=== PATIENT | male | born 1960 | race Caucasian/White ===

== ENCOUNTER 2024-04-28 21:48 | Emergency (ER) | payer SELFPAY ==
[2024-04-28 21:54] VITALS: BP 90/66; PULSE 71; RESP 20; TEMP 36.6; O2SAT 99; BMI 22.4
--- NOTE | 2024-04-28 23:33 | ED_ITS ---
HPI - Eye Problem General Chief complaint: Eye Problems Stated complaint: FB in R eye Time Seen by Provider: 04/28/24 22:17 Source: patient and RN notes reviewed Mode of arrival: ambulatory Limitations: no limitations History of Present Illness ED Provider: Sheryl Mohamud PA-C HPI Narrative: This is a 64-year-old male, with no known medical problems, who presents to the emergency department with complaints of right eye foreign body. Patient states that he was grinding metal in a piece of metal got behind his safety glasses and went into his right eye. He states that he tried flushing his eye with water however feels as though the eye still has a foreign body in it. He admits to pain, foreign body like sensation, as well as some blurred vision. He does not wear contact lenses. No other complaints or concerns at this time. MD chief complaint: eye pain, eye redness, eye injury and foreign body Onset (ago): hour(s) Onset description: sudden Duration: constant Location: right eye Eye Symptoms: redness, foreign body sensation and blurry vision Place: home Mechanism: direct trauma and occurred while hammering/grinding Severity: moderate If Pain, Quality: aching Associated symptoms: none Treatments Prior to Arrival: irrigated eye Related Data Previous Rx's ?Medication ?Instructions ?Recorded erythromycin 5 mg/gram (0.5 %) eye 0.5 inch ophthalmic (eye) QID #3.5 04/29/24 ointment grams Allergies Allergy/AdvReac Type Severity Reaction Status Date / Time Penicillins [PENICILLINS] Allergy Unknown NAUSEA & Verified 04/28/24 22:00 VOMITING penicillin V AdvReac Unknown coma-like Verified 04/28/24 22:00 Penicillin Allergy Unknown vomiting/co Uncoded 03/03/12 00:00 nfusion Review of Systems Review of Systems: Yes all other systems are reviewed and are negative Constitutional: Constitutional: Reports as per [facility] Social History Social History Advance Directives: No Advance Directives Information Provided: No Do you have a plan to hurt others: No Plan Physical Exam Vital Signs: Vital Signs: Last Vital Signs Temp 98 F 04/28/24 21:54 Pulse 71 04/28/24 21:54 Resp 20 04/28/24 21:54 BP 90/66 04/28/24 21:54 Pulse Ox 99 04/28/24 21:54 O2 Del Method Room Air 04/28/24 21:54 BMI result Body Mass Index 22.4 Const: General: cooperative, comfortable and no acute distress Orientation/consciousness: patient oriented x3 Limitations: no limitations HEENT: Head: Yes normal to inspection, Yes normocephalic and Yes atraumatic Ears: hearing grossly normal bilaterally General nose exam: Normal external nose present Face and sinus: Yes normal facial exam Mouth: Normal oral and palatal mucosa present, oropharynx normal and moist mucous membranes Throat: Yes posterior oropharynx normal Eyes: Other: Right eye, there is a large corneal abrasion noted over the iris at the 7 to 10 o'clock position measuring approximately 2 mm, this is noted with positive fluorescein uptake. No rust ring seen. Conjunctiva is injected. Everted right eyelid, there is a punctate metal foreign body noted in the internal upper eyelid, lateral aspect General: appearance normal, both eyes and all related structures Pupils: Equal, round and reactive pupils present EOM: EOMs intact bilaterally Neck: Neck: Yes normal visual inspection, Yes full ROM and Yes no lympha denopathy Lymphatic: no lymphadenopathy noted Chest: Chest palpation & inspection: normal inspection of the chest Resp: Effort & Inspection: normal respiratory effort and able to speak in complete sentences Auscultation: clear to auscultation bilaterally, no crackles, no rales, no rhonchi and no wheezes Cardio: Rate: regular rate Rhythm: regular rhythm Heart sounds: S1 normal heart sound present and S2 normal heart sound present GI: Inspection: Yes normal to inspection Skin: General skin exam: no rashes or lesions noted Trauma: no lacerations or abrasions Wounds: no wounds Neuro: General: patient oriented x3 and moves all extremities Cranial nerves: Yes Equal, round and reactive pupils present Extrem: General: Yes normal to inspection Right upper extremity: normal to inspection Left upper extremity: normal to inspection Right lower extremity: normal to inspection Left lower extremity: normal to inspection Medications Administered Discontinued Medications Generic Name Dose Route Start Last Admin Trade Name Gilmerq PRN Reason Stop Dose Admin Fluorescein Sodium 1 strip 04/28/24 23:11 04/28/24 23:37 Fluorescein Sodium Strip EYE-BOTH 04/28/24 23:12 1 strip ONCE ONE Administration Tetracaine HCl 1 drop 04/28/24 23:11 04/28/24 23:37 Tetracaine Hcl/Pf 0.5% Oph Eleanor 4 Ml Drops EYE-RIGHT 04/28/24 23:12 1 drop ONCE ONE Administration Medical Decision Making Medical Decision Making MDM Narrative: This is a 64-year-old male who presents emergency department with complaints of ? Foreign body in his right eye. Patient states that he was grinding metal earlier this afternoon and felt a piece of metal go directly into his right eye. Fluorescein uptake seen in the right eye. Slit-lamp examination was performed with my attending physician, Dr. Rueda. Everted eyelid and there has a notable punctate lesion noted just under the right eyelid. This was cotton swab. Patient tolerated procedure well without any complications or concerns. He was given his 1st dose of erythromycin ointment in the department today. Given return precautions as well as referral to Dr. Frazier for followup. Visual acuity 20/70 in the right, 20/50 in the left. Patient stable for discharge. Given return precautions. Differential Diagnosis Differential Diagnoses: The differential diagnosis associated with the presentation includes Corneal abrasion, laceration, foreign body, conjunctivitis Procedures FB Removal Eye Time Out performed: Yes Location: eye (R) Topical anesthetic used: tetracaine Foreign body: metal Evidence of corneal penetration: No Technique: cotton tip swab Procedure performed under: direct visualization with magnification and slit-lamp Post-procedure medication: ophthalmic antibiotic Patient tolerated procedure: well and no complications Discharge Plan Discharge Clinical Impression: Foreign body under eyelid Corneal abrasion Qualifiers: Encounter type: initial encounter Laterality: right Qualified Code(s): S05.01XA - Injury of conjunctiva and corneal abrasion without foreign body, right eye, initial encounter Patient Disposition: Home, Self-Care Instructions: Corneal Abrasion (ED), Abrasion (ED) Additional Instructions: You were seen in the emergency department for a foreign body in your right eye. We were able to remove a foreign body that was located under your right eyelid. You also have a abrasion noted on your right eye. Please use erythromycin ointment 4 times a day for 7 days. Please follow-up with Dr. Frazier, eye physician, call on wednesday to make an appointment. If any new or worsening symptoms occur including but not limited to severe eye pain, please return for re-evaluation. You may take ibuprofen and/or Tylenol as needed for pain. Prescriptions: New erythromycin 5 mg/gram (0.5 %) ointment 0.5 inch ophthalmic (eye) QID Qty: 3.5 0RF Referrals: Karlos Frazier [Physician] - Print Language: Argentine
[2024-04-28] MEDS: Fluorescein Sodium STRIP 1 STRIP EYE-BOTH (23:37)
[2024-04-28] MEDS: Tetracaine HCl/PF 0.5% Oph Sol 4 ML DROPS 1 DROP EYE-RIGHT (23:37)
[2024-04-29 00:35] VITALS: BP 130/79; PULSE 52; RESP 20; TEMP 36.4; O2SAT 100
[2024-04-29] MEDS: Erythromycin Base 0.5% Oph Oin 1 GM TUBE 1 CM EYE-RIGHT (00:39)
[2024-04-29 00:40] VITALS: BP 130/79; PULSE 52; RESP 20; TEMP 36.4; O2SAT 100
== END 2024-04-29 00:45 | disposition home or self-care (01) ==
PROVIDERS: Emergency Provider Emergency Medicine
DX: S00.251A Superficial foreign body of right eyelid and periocular area, initial encounter (principal); H53.8 Other visual disturbances; H57.11 Ocular pain, right eye; W44.H0XA Other sharp object unspecified, entering into or through a natural orifice, initial encounter; Y93.9 Activity, unspecified; Y92.9 Unspecified place or not applicable; Y99.8 Other external cause status
CPT/HCPCS: 67938; 99283; 99284